=== PATIENT | male | born 2000 | race Two or more races ===

== ENCOUNTER 2021-03-15 06:21 | Outpatient (CLI) | payer OTHER | END 2021-03-15 06:22 | disposition home or self-care (01) | LOC: LAB 06:21 | PROVIDERS: ATTEND Family Medicine | DX: L65.8 Other specified nonscarring hair loss (principal); E78.00 Pure hypercholesterolemia, unspecified; A63.8 Other specified predominantly sexually transmitted diseases ==

== ENCOUNTER 2021-05-27 10:20 | Outpatient (CLI) | payer OTHER | END 2021-05-27 10:28 | disposition home or self-care (01) | LOC: LAB 10:20 | PROVIDERS: ATTEND Family Medicine | DX: R21 Rash and other nonspecific skin eruption (principal); E03.9 Hypothyroidism, unspecified; E78.00 Pure hypercholesterolemia, unspecified; R73.01 Impaired fasting glucose ==